=== PATIENT | female | born 1950 | race Caucasian/White ===

== ENCOUNTER 2022-10-11 20:31 | Emergency (ER) | payer MEDICARE, MEDICAID ==
[~2022-10-11] VITALS: Ht 160 cm; Wt 129.3 kg
[2022-10-11 20:36] VITALS: BP_SYST 136; PULSE 74; RESP 16; TEMP 97.9; O2SAT 98
--- NOTE | 2022-10-11 20:39 | NUR ---
Patient to ER bed 8 to gown for evaluation. Side rails up. Report given to SARA RAMÍREZ.
--- NOTE | 2022-10-11 20:41 | NUR ---
pt bib ambulance from home. c/o nosebleed. Pt states to have blew her nose when she started to feel warmness to nose followed by bleeding. Pt states to have saturated 3 wash clothes. Bleeding has stopped and is controlled. Pt denies trauma to area. Pt denies pain. Pt denies N/V/D. Pt RR even and unlabored. Pt denies SOB. Pt VSS. AAOX4. PERRLA. skin dry and intact. Pt in bed with side rails up.
--- NOTE | 2022-10-11 20:45 | NUR ---
ER at bedside examining patient.
[2022-10-11] MEDS ORDERED: OXYMETAZOLINE HCL 0.05% NASAL SPRAY NS ONE (21:00)
--- NOTE | 2022-10-11 21:24 | NUR ---
medicated per md espinal. pt in observation for 15 min. pt tolerated well.
--- NOTE | 2022-10-11 21:59 | NUR ---
no active bleeding. pt vss. aaox4. pt family at bedside
--- NOTE | 2022-10-11 22:21 | NUR ---
Patient given written and verbal discharge instructions and verbalizes understanding. ER MD discussed with patient the results and treatment provided. Patient in stable condition. ID arm band removed. Patient educated on pain management and to follow up with PMD. Opportunity for questions provided and answered. Medication side effect fact sheet provided.
[2022-10-11 22:22] VITALS: BP_SYST 151; PULSE 70; RESP 16; TEMP 99.1; O2SAT 94
== END 2022-10-11 22:22 | disposition home or self-care (01) ==
LOC: SED 20:31
DX: R04.0 Epistaxis (principal); K21.9 Gastro-esophageal reflux disease without esophagitis; I10 Essential (primary) hypertension; Z88.6 Allergy status to analgesic agent; Z79.899 Other long term (current) drug therapy
CPT/HCPCS: 99283